=== PATIENT | female | born 1965 | race Caucasian/White ===

== ENCOUNTER 2022-06-03 11:22 | Outpatient (CLI) | payer OTHER | END 2022-06-03 11:23 | disposition home or self-care (01) | LOC: BICMAMMO 11:22 | PROVIDERS: ATTEND Family Medicine | DX: Z12.31 Encounter for screening mammogram for malignant neoplasm of breast (principal) | CPT/HCPCS: 77063; 77067 ==

== ENCOUNTER 2024-12-08 11:07 | Outpatient (CLI) | payer OTHER | END 2024-12-08 11:08 | disposition home or self-care (01) | LOC: ULT 11:07 | PROVIDERS: ATTEND Physician Assistant | DX: R33.9 Retention of urine, unspecified (principal); N39.43 Post-void dribbling | CPT/HCPCS: 76856 ==

== ENCOUNTER 2024-12-11 10:37 | Outpatient (CLI) | payer OTHER | END 2024-12-11 10:38 | disposition home or self-care (01) | LOC: BICMAMMO 10:37 | PROVIDERS: ATTEND Physician Assistant | DX: Z12.31 Encounter for screening mammogram for malignant neoplasm of breast (principal); Z98.890 Other specified postprocedural states | CPT/HCPCS: 77063; 77067 ==